=== PATIENT | male | born 1980 | race Two or more races ===

== ENCOUNTER 2021-03-30 13:22 | Inpatient (IN) | payer MEDICAID, OTHER ==
[~2021-03-30] VITALS: Ht 167.6 cm; Wt 149.7 kg
[2021-03-30 15:29] LABS: BASOPHILS % 0.3 % (0.0-2.0); EOSINOPHILS % 1.4 % (0.0-5.0); HEMATOCRIT. 48.1 % (42.0-52.0); HEMOGLOBIN. 16.3 g/dL (14.0-18.0); LYMPHOCYTES % 43.4 % (20.0-50.0); MEAN CORPUSCULAR HEMOGLOBIN 30.6 pg (28.0-32.0); MEAN CORPUSCULAR VOLUME 90.2 fL (80.0-94.0); MEAN PLATELET VOLUME 9.2 fl (7.4-10.4); MONOCYTES % 9.2 % (2.0-8.0); NEUTROPHILS % 45.7 % (40.0-76.0); PLATELET 273 x1000/uL (130-400); RED BLOOD CELL COUNT 5.34 mill/uL (4.7-6.1); RED CELL DISTRIBUTION WIDTH 14.5 % (11.6-14.6)
[2021-03-30 15:30] LABS: CHLORIDE 108 mEq/L (98-107)
[2021-03-30] MEDS ORDERED: ENOXAPARIN 150MG/ML SYR SUBCUT ONE (17:15)
[2021-03-31 04:33] VITALS: BP 123/72
[2021-03-31] MEDS ORDERED: ALBU6.7H9 INH (05:56)
[2021-03-31] MEDS ORDERED: ACETAMINOPHEN 325MG TABLET PO PRN (06:15)
[2021-03-31] MEDS ORDERED: ONDANSETRON HCL 4MG/2ML INJ IV PRN (06:15)
[2021-03-31 08:00] VITALS: BP 129/77
[2021-03-31] MEDS: IPRATROPIUM/ALBUTEROL 0.5-3(2.5)MG/3ML NEB HHN SCH ×4 (08:37→20:15)
[2021-03-31 08:58] LABS: BASOPHILS % 0.3 % (0.0-2.0); CHLORIDE 109 mEq/L (98-107); EOSINOPHILS % 1.3 % (0.0-5.0); HEMATOCRIT. 46.8 % (42.0-52.0); LYMPHOCYTES % 35.6 % (20.0-50.0); MEAN CORPUSCULAR HEMOGLOBIN 30.8 pg (28.0-32.0); MEAN CORPUSCULAR VOLUME 89.9 fL (80.0-94.0); MEAN PLATELET VOLUME 9.2 fl (7.4-10.4); MONOCYTES % 8.7 % (2.0-8.0); NEUTROPHILS % 54.1 % (40.0-76.0); PLATELET 268 x1000/uL (130-400); RED BLOOD CELL COUNT 5.21 mill/uL (4.7-6.1); RED CELL DISTRIBUTION WIDTH 14.5 % (11.6-14.6)
[2021-03-31 09:04] LABS: INR 1.1; PROTHROMBIN TIME 11.4 sec (9.6-11.0)
[2021-03-31 09:05] LABS: LDL CHOLESTEROL 90 mg/dL (5-100)
[2021-03-31 09:06] LABS: HDL CHOLESTEROL 39 mg/dL (40-59)
[2021-03-31] MEDS ORDERED: PNEUMOCOCCAL 23-VAL P-SAC VAC 0.5 ML IM ONE (11:00)
[2021-03-31 12:00] VITALS: BP 138/90
[2021-03-31 16:00] VITALS: BP 113/71
[2021-03-31] MEDS: TRIAMCINOLONE ACETONIDE 0.1% CREAM 15GM TOP SCH (19:00)
[2021-03-31] MEDS: ENOXAPARIN 150MG/ML SYR SUBCUT SCH (21:04)
[2021-04-01] MEDS: IPRATROPIUM/ALBUTEROL 0.5-3(2.5)MG/3ML NEB HHN SCH ×5 (00:19→15:17)
[2021-04-01 08:00] VITALS: BP 111/69
[2021-04-01] MEDS: ENOXAPARIN 150MG/ML SYR SUBCUT SCH (09:00)
[2021-04-01] MEDS: TRIAMCINOLONE ACETONIDE 0.1% CREAM 15GM TOP SCH ×2 (09:01→17:11)
[2021-04-01 12:00] VITALS: BP 121/60
[2021-04-01] MEDS ORDERED: LIDOCAINE HCL 1% 20ML VIAL (Pyxis) INJ ONE (12:40)
[2021-04-01] MEDS ORDERED: IOHEXOL-350 100 ML BOTTLE ONE (15:05)
[2021-04-01 16:00] VITALS: BP 117/79
[2021-04-01] MEDS ORDERED: XAR15 MT (17:15)
[2021-04-01 17:46] VITALS: BP 120/71
== END 2021-04-01 18:30 | disposition home or self-care (01) | DRG 197 ==
LOC: ER 13:22 → 6WST 20:38 → ENRESERV 03-31 00:13
PROVIDERS: ADMIT Internal Medicine; ATTEND Internal Medicine
PROC: 02HV33Z Insertion of Infusion Device into Superior Vena Cava, Percutaneous Approach (ICD-10-PCS; principal; 2021-04-01)
PROC: B518ZZA Fluoroscopy of Superior Vena Cava, Guidance (ICD-10-PCS; 2021-04-01)
DX: I82.411 Acute embolism and thrombosis of right femoral vein (principal); E87.8 Other disorders of electrolyte and fluid balance, not elsewhere classified; E44.1 Mild protein-calorie malnutrition; E66.01 Morbid (severe) obesity due to excess calories; R04.2 Hemoptysis; Z20.822 Contact with and (suspected) exposure to COVID-19; E11.9 Type 2 diabetes mellitus without complications; F17.210 Nicotine dependence, cigarettes, uncomplicated; G47.33 Obstructive sleep apnea (adult) (pediatric); J45.909 Unspecified asthma, uncomplicated; Z68.43 Body mass index [BMI] 50.0-59.9, adult; Z71.6 Tobacco abuse counseling
CPT/HCPCS: 36415; 36573; 71046; 71275; 80048; 80053; 80061; 83036; 84484; 85025; 85379; 87426; 93005; 93971; 94640; 97162; 99285; C1725; C1893; J1650; J3490; Q9967

== ENCOUNTER 2021-06-22 23:36 | Emergency (ER) | payer OTHER ==
[~2021-06-22] VITALS: Ht 170.2 cm; Wt 141.0 kg
[~2021-06-22 23:36] MED LIST: ALBU6.7H9 INH; XAR15 MT
[2021-06-23 01:08] LABS: HEMATOCRIT. 45.2 % (42.0-52.0); HEMOGLOBIN. 15.8 g/dL (14.0-18.0); MEAN CORPUSCULAR HEMOGLOBIN 31.2 pg (28.0-32.0); MEAN CORPUSCULAR VOLUME 89.3 fL (80.0-94.0); MEAN PLATELET VOLUME 8.5 fl (7.4-10.4); PLATELET 393 x1000/uL (130-400); RED BLOOD CELL COUNT 5.06 mill/uL (4.7-6.1); RED CELL DISTRIBUTION WIDTH 15.3 % (11.6-14.6)
[2021-06-23 01:09] LABS: CHLORIDE 107 mEq/L (98-107)
[2021-06-23 01:37] LABS: PARTIAL THROMBOPLASTIN TIME 25.6 sec (23.4-31.0); PROTHROMBIN TIME 10.6 sec (9.6-11.0)
[2021-06-23 02:25] VITALS: BP 123/79
[2021-06-23] MEDS ORDERED: FAMO-135 MT (02:51)
[2021-06-23 05:11] LABS: ATYPICAL LYMPHOCYTES 5; PLATELET ESTIMATE NORMAL
== END 2021-06-23 03:12 | disposition home or self-care (01) ==
LOC: ER 23:36
DX: R04.2 Hemoptysis (principal); K62.5 Hemorrhage of anus and rectum; F17.290 Nicotine dependence, other tobacco product, uncomplicated; Z88.0 Allergy status to penicillin; M25.532 Pain in left wrist; M25.531 Pain in right wrist; M79.642 Pain in left hand; M79.641 Pain in right hand
CPT/HCPCS: 36415; 71045; 73110; 73130; 80053; 82270; 85025; 93970; 99285

== ENCOUNTER 2021-07-23 13:53 | Emergency (ER) | payer MEDICAID, OTHER ==
[~2021-07-23] VITALS: Ht 170.2 cm; Wt 138.0 kg
[~2021-07-23 13:53] MED LIST changes: +FAMO-135 MT
[2021-07-23] MEDS ORDERED: KETOROLAC 60MG/2ML VIAL IM STA (17:58)
[2021-07-23 18:34] LABS: BASOPHILS % 0.3 % (0.0-2.0); EOSINOPHILS % 3.8 % (0.0-5.0); HEMATOCRIT. 44.6 % (42.0-52.0); HEMOGLOBIN. 15.2 g/dL (14.0-18.0); LYMPHOCYTES % 51.8 % (20.0-50.0); MEAN CORPUSCULAR HEMOGLOBIN 30.5 pg (28.0-32.0); MEAN CORPUSCULAR VOLUME 89.4 fL (80.0-94.0); MEAN PLATELET VOLUME 7.9 fl (7.4-10.4); MONOCYTES % 8.7 % (2.0-8.0); NEUTROPHILS % 35.4 % (40.0-76.0); PLATELET 360 x1000/uL (130-400); RED BLOOD CELL COUNT 4.99 mill/uL (4.7-6.1); RED CELL DISTRIBUTION WIDTH 15.2 % (11.6-14.6)
[2021-07-23 18:41] LABS: CHLORIDE 108 mEq/L (98-107)
[2021-07-23 19:07] LABS: CLARITY URINE CLOUDY (CLEAR); COLOR URINE YELLOW (YELLOW); KETONES URINE TRACE (NEGATIVE); LEUKOCYTE ESTERASE URINE NEGATIVE (NEGATIVE); NITRITE URINE NEGATIVE (NEGATIVE); OCCULT BLOOD URINE 1+ (NEGATIVE); PROTEIN URINE NEGATIVE (NEGATIVE); SPECIFIC GRAVITY URINE 1.034 (1.005-1.030)
[2021-07-23 21:38] VITALS: BP 132/84
[2021-07-23] MEDS ORDERED: IBUP-2029 MT (21:40)
[2021-07-23] MEDS ORDERED: CYCL10TA7 MT (21:40)
== END 2021-07-23 21:50 | disposition home or self-care (01) ==
LOC: ER 13:53
DX: R10.9 Unspecified abdominal pain (principal); J45.909 Unspecified asthma, uncomplicated; Z88.0 Allergy status to penicillin; Z88.1 Allergy status to other antibiotic agents
CPT/HCPCS: 36415; 80053; 81003; 85025; 93971; 96372; 99284; J1885